=== PATIENT | male | born 1995 | race Hispanic/Latino ===

== ENCOUNTER 2022-08-13 01:47 | Emergency (ER) | payer OTHER ==
[~2022-08-13] VITALS: Ht 157.5 cm; Wt 75.7 kg
[2022-08-13 03:11] VITALS: BP 134/68
== END 2022-08-13 03:02 | disposition home or self-care (01) ==
LOC: EDH 01:47
DX: R56.9 Unspecified convulsions (principal); F17.200 Nicotine dependence, unspecified, uncomplicated